=== PATIENT | female | born 1990 | race African-American/Black ===

== ENCOUNTER 2021-09-12 11:37 | Emergency (ER) | payer OTHER ==
[~2021-09-12] VITALS: Ht 160 cm; Wt 103.0 kg
[2021-09-12] MEDS ORDERED: IBUPROFEN 600MG TABLET PO STA (13:20)
[2021-09-12] MEDS ORDERED: ONDANSETRON 4MG ODT PO STA (13:20)
[2021-09-12] MEDS ORDERED: P20 PO (14:40)
[2021-09-12] MEDS ORDERED: NAPR-681 PO (14:40)
[2021-09-12] MEDS ORDERED: ALBU18HF2 IH (14:40)
[2021-09-12 15:04] VITALS: BP 133/86
== END 2021-09-12 15:14 | disposition home or self-care (01) ==
LOC: ER 12:10
DX: J06.9 Acute upper respiratory infection, unspecified (principal); M79.18 Myalgia, other site; J45.909 Unspecified asthma, uncomplicated; E11.9 Type 2 diabetes mellitus without complications; Z98.890 Other specified postprocedural states; Z88.0 Allergy status to penicillin
CPT/HCPCS: 71045; 99283; Q0162

== ENCOUNTER 2022-06-06 11:17 | Emergency (ER) | payer OTHER ==
[~2022-06-06] VITALS: Ht 162.6 cm; Wt 96.0 kg
[~2022-06-06 11:17] MED LIST: ALBU18HF2 IH; NAPR-681 PO; P20 PO
[2022-06-06] MEDS ORDERED: IBUPROFEN 600MG TABLET PO ONE (14:00)
[2022-06-06 14:21] VITALS: BP 138/84
[2022-06-06] MEDS ORDERED: GUAI-741 MT (15:42)
== END 2022-06-06 15:57 | disposition home or self-care (01) ==
LOC: ER 11:17
DX: U07.1 COVID-19 (principal)
CPT/HCPCS: 71045; 93005; 99283